=== PATIENT | male | born 1960 | race Hispanic/Latino ===

== ENCOUNTER 2017-06-03 13:01 | Emergency (ER) | payer OTHER ==
[2017-06-03 13:01] VITALS: BMI 38.9
[2017-06-03 13:25] VITALS: TEMP 97.8
--- NOTE | 2017-06-03 13:53 | ED PDOC ---
Arrival/HPI - General Historian: Patient - History of Present Illness Time/Duration: 24 hours Symptom Course: Improving Severity Level: Mild Activities at Onset: Rest Context: Home - General Chief Complaint: High Blood Pressure Time Seen by Provider: 06/03/17 13:26 - History of Present Illness Narrative History of Present Illness (Text): 06/03/17 13:47 This is a 56 yo male with past medical hx of morbid obesity, HTN, meningioma, colon polyps, diverticulosis presenting with chief complaint of "high blood pressure." Patient has a blood pressure machine at home. He was not feeling right last night and decided to check his blood pressure. It was 210/110. He did not make too much of it and took his valsartan - HCTZ as usual this morning. He rechecked his pressure at about 10 am and it was still about 210/ 110. He rechecked it again at about 1230 just before coming in and it was 190/ 100. He currently denies any symptoms including chest pain, shortness of breath , palpitations, syncope, other systemic sx. His PMD is Dr. Disla. The last time he saw Dr. Disla was 6 months ago. PMH: obesity, HTN, meningioma, colon polyps, diverticulosis PSH: tonsillectomy Allergies: NKDA FH: adopted; family hx is unknown Home meds: KCl, valsartan-HCTZ Social hx: Does not smoker. Former alcoholic. Remote hx of cocaine and marijuana use. [place] in . Works in real estate. Lives at home with louie. 06/03/17 13:58 06/03/17 13:59 (Elias Martinez) Past Medical History - Provider Review Nursing Documentation Reviewed: Yes - Travel History Have you recently traveled outside [place] w/in the past 3 mons?: No - Infectious Disease Hx of Infectious Diseases: None - Cardiac Hx Cardiac Disorders: Yes Hx Hypertension: Yes - Pulmonary Hx Respiratory Disorders: No - Neurological Hx Neurological Disorder: No - HEENT Hx HEENT Disorder: No - Renal Hx Renal Disorder: No - Endocrine/Metabolic Hx Endocrine Disorders: No - Hematological/Oncological Hx Blood Disorders: Yes Hx Hepatitis C: Yes (hx of) - Integumentary Hx Dermatological Disorder: No - Musculoskeletal/Rheumatological Hx Musculoskeletal Disorders: No - Gastrointestinal Hx Gastrointestinal Disorders: No - Genitourinary/Gynecological Hx Genitourinary Disorders: No - Psychiatric Hx Psychophysiologic Disorder: No Hx Substance Use: No - Surgical History Hx Tonsillectomy: Yes - Anesthesia Hx Anesthesia: Yes Hx Anesthesia Reactions: No Hx Malignant Hyperthermia: No Family/Social History - Physician Review Nursing Documentation Reviewed: Yes Family/Social History: Unknown Family HX Smoking Status: Never Smoked Hx Alcohol Use: Yes Hx Substance Use: Yes Hx Substance Use Treatment: No Allergies/Home Meds Allergies/Adverse Reactions: Allergies No Known Allergies Allergy (Verified 06/03/17 13:21) Home Medications: Home Meds Medication Instructions Recorded Confirmed Hydrochlorothiazide/Valsarta 1 tab PO DAILY 03/30/15 06/03/17 [Diovan Hct 12.5 mg-160 mg] Potassium Chloride [Potassium 1 tab PO DAILY 03/30/15 06/03/17 Chloride Oral Soln] Review of Systems - Review of Systems Constitutional: absent: Fevers, Night Sweats Eyes: absent: Vision Changes, Photophobia ENT: absent: Hearing Changes, Tinnitus Respiratory: absent: SOB, Cough Cardiovascular: absent: Chest Pain, Palpitations Gastrointestinal: absent: Abdominal Pain, Stool Changes Genitourinary Male: absent: Dysuria, Frequency Musculoskeletal: absent: Arthralgias, Back Pain Skin: absent: Rash, Pruritis Neurological: absent: Headache, Dizziness Endocrine: absent: Diaphoresis, Polyuria Hemo/Lymphatic: absent: Adenopathy, Easy Bleeding Psychiatric: absent: Anxiety, Depression Physical Exam Vital Signs Reviewed: Yes Mental Status: Positive for: Alert and Oriented X 3 - Systems Exam Head: Present: Atraumatic, Normocephalic Pupils: Present: PERRL Neck: Present: Normal Range of Motion. No: JVD Respiratory/Chest: No: Respiratory Distress, Accessory Muscle Use Cardiovascular: Present: Regular Rate and Rhythm, Normal S1, S2 Abdomen: Present: Normal Bowel Sounds. No: Tenderness, Peritoneal Signs Upper Extremity: Present: Normal Inspection. No: Cyanosis, Edema Lower Extremity: Present: Normal Inspection. No: Edema Neurological: Present: CN II-XII Intact, Speech Normal Skin: Present: Warm, Dry Psychiatric: Present: Alert, Oriented x 3, Normal Insight, Normal Concentration Vital Signs Temp Pulse Resp BP Pulse Ox 06/03/17 15:45 95 H 17 167/110 H 98 06/03/17 15:44 95 H 17 167/110 H 98 06/03/17 15:32 82 17 182/127 H 95 06/03/17 14:55 79 17 191/105 H 97 06/03/17 14:43 80 199/98 H 06/03/17 13:21 97.8 F 90 18 204/119 H 100 Medical Decision Making ED Course and Treatment: pt denies any chest pain, sob, palpitations, headache, blurry vision, numbness, tingling, weakness, or any other symptoms at this time. his BP came down spontaneously and continued to trend down after po labetalol. hypertensive urgency without any signs of hypertensive emergency. disc w pt importance of close f/u w pmd as well as reasons to return. he v/u and agrees w plan. (Solitario aCstillo) - Medication Orders Current Medication Orders: Discontinued Medications Labetalol HCl (Trandate) 100 mg PO ONCE ONE Stop: 06/03/17 13:45 Last Admin: 06/03/17 14:43 Dose: 100 mg MAR Pulse and Blood Pressure Document 06/03/17 14:43 MR (Rec: 06/03/17 14:43 [id number]) Pulse Pulse Rate (60-90) 80 Blood Pressure Blood Pressure (100/60-150/90) 199/98 Disposition/Present on Arrival - Present on Arrival Any Indicators Present on Arrival: No History of DVT/PE: No History of Uncontrolled Diabetes: No Urinary Catheter: No History of Decub. Ulcer: No History Surgical Site Infection Following: None - Disposition Have Diagnosis and Disposition been Completed?: Yes Disposition Time: 16:30 Patient Plan: Discharge - Disposition Diagnosis: Hypertension Disposition: HOME/ ROUTINE Condition: STABLE Discharge Instructions (ExitCare): Hypertension (ED) Additional Instructions: Patient should follow up with PMD tomorrow. Please return if condition worsens. Please take all blood pressure meds as prescribed. Referrals: Hector Disla MD [Primary Care Provider] - Follow up with primary Forms: [employer] (Macedonian)
[2017-06-03 14:56] VITALS: RESP 17
[2017-06-03 15:45] VITALS: BP 167/110; PULSE 95; O2SAT 98
--- NOTE | 2017-06-04 07:43 | CARD ---
APPROVED REPORT EKG Measurement Heart [id number] <Conclusion> Normal sinus rhythm Prolonged QT Abnormal ECG
== END 2017-06-03 15:46 | disposition home or self-care (01) ==
LOC: ED 13:01
DX: I10 Essential (primary) hypertension (principal)

== ENCOUNTER 2018-07-13 08:41 | Outpatient (CLI) | payer OTHER | END 2018-07-13 08:42 | disposition home or self-care (01) | LOC: CARDIO 08:41 | DX: I10 Essential (primary) hypertension (principal); R06.02 Shortness of breath; E66.09 Other obesity due to excess calories; R07.89 Other chest pain ==

== ENCOUNTER 2018-07-16 10:32 | Outpatient (CLI) | payer OTHER | END 2018-07-16 10:33 | disposition home or self-care (01) | LOC: RAD 10:32 ==